=== PATIENT | male | born 2000 | race Caucasian/White ===

== ENCOUNTER 2023-08-14 12:58 | Outpatient (OUT) | payer OTHER, SELFPAY ==
--- NOTE | 2023-08-14 | XR_ITS ---
The [address] [address] Patient Name: SHAINA CAMPA MRN: [id number] date: 2000 Sex: M Assigned Patient Location: Current Patient Location: Accession/Order Number: [id number] Exam Date: 08/14/2023 13:00 Report Date: 08/15/2023 11:53 At the request of: AYDEE TATUM Procedure: XR knee LT 4V PROCEDURE: XR knee LT 4V HISTORY: KNEE PAIN ; injured left knee weightlifting 2 months ago COMPARISON: None. FINDINGS: BONES:No fracture, acute abnormality, or significant arthropathy. SOFT TISSUES:No visible soft tissue swelling. EFFUSION:None visible. OTHER: Negative. XR/XR knee LT 4V IMPRESSION: 1. No acute bone abnormality. 2. No significant degenerative changes. Electronically authenticated by: AYDEE DOMINGO Date: 08/15/2023 11:53
== END 2023-08-14 12:59 | disposition home or self-care (01) ==
LOC: EC 12:58
PROVIDERS: PCP Orthopaedic Surgery; Visit Provider Orthopaedic Surgery
DX: M25.562 Pain in left knee (principal)
CPT/HCPCS: 73564

== ENCOUNTER 2023-09-21 03:25 | Observation (INO) | payer OTHER, SELFPAY ==
[2023-09-21] VITALS (12 sets, daily range): BP systolic 98–128; BP diastolic 45–69; PULSE 49–81; TEMP 36.5–37.7; O2SAT 95–99; BMI 24.3; BMI 25.3
--- NOTE | 2023-09-21 03:40 | PC.NURSE ---
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 To which she replied yes however she reported to Dr Donohue that it was 6-200mg tablets as well as a generic OTC zofran An IV was started by this nurse, labs drawn, a straight stick performed for the second set of blood cultures, strep swab obtained Dr. Donohue states concern for Meningitis, between Dr. Donohue and I we decide it is in pt's best interest to do a respiratory panel to test for all ailments prior to performing a spinal tap- respiratory panel obtained Pt profusely sweating at time of assessment-given a cool wash cloth which he places on his forehead Pt was able to sit forward with assistance and take Tylenol orally At this time nurse makes pt and his mother aware of care plan and planned radiology-pt and his mother verbalize understanding and deny further needs or questions at this time
--- NOTE | 2023-09-21 03:49 | CT_ITS ---
The [address] [address] Patient Name: SHAINA CAMPA MRN: [id number] date: 2000 Sex: M Assigned Patient Location: ER Current Patient Location: [facility] Accession/Order Number: [id number] Exam Date: 09/21/2023 04:30 Report Date: 09/21/2023 05:25 At the request of: GÓMEZ RAMÍREZ Procedure: CT head/brain wo con CT OF THE BRAIN WITHOUT CONTRAST: 09/21/2023 4:30 AM EDT HISTORY: Fever and headache. TECHNIQUE: Contiguous axially collimated images were obtained through the intracranial compartment, from the vertex through the foramen magnum. Coronal and Sagittal reformatted images were prepared on a separate workstation and reviewed on the PACS for anatomic correlation. No contrast was administered. This CT exam was performed using one or more of the following dose reduction techniques: Automated exposure control, adjustment of the mA and/or kV according to patient size, or use of iterative reconstruction technique. Thin section coronal and sagittal images were reconstructed from the axial data set. All images were reviewed and interpreted. COMPARISON: None. FINDINGS: There is no intracranial hemorrhage or abnormal extra-axial fluid collection. To the extent of evaluated with noncontrast technique, there is no mass lesion appreciated. There is no mass-effect or shift of midline structures. The ventricles and CSF spaces are age appropriate. There is no evidence of hydrocephalus. There is no effacement of the basal cisterns. Amezcua white matter differentiation is well preserved throughout, without evidence of acute ischemia. There is no significant leukomalacia. The basal ganglia and thalami are unremarkable. The posterior fossa, brain stem, and fourth ventricle are normal. There is no tonsillar ectopy. The calvarium is intact, without destructive lesion or depressed fracture. The mastoid air cells are well-aerated. The paranasal sinuses are normally aerated. CT/CT head/brain wo con IMPRESSION: No acute or significant intracranial pathology. Electronically authenticated by: JASMIN VALVERDE Date: 09/21/2023 05:25
--- NOTE | 2023-09-21 03:49 | XR_ITS ---
[address] [address] Patient Name: SHAINA CAMPA MRN: [id number] date: 2000 Sex: M Assigned Patient Location: ER Current Patient Location: ED.MAIN Accession/Order Number: [id number] Exam Date: 09/21/2023 04:20 Report Date: 09/21/2023 05:25 At the request of: GÓMEZ MARKER Procedure: XR chest 2V EXAM: XR chest 2V HISTORY: Headache. fever COMPARISON: None. TECHNIQUE: PA and lateral chest. FINDINGS: Both lungs are expanded and clear. No pneumothorax or pleural effusion. Normal heart size and vasculature. Skeletal structures are intact and normal. No fractures. XR/XR chest 2V IMPRESSION: Negative two-view chest. Clear lungs. Electronically authenticated by: JASMIN VALVERDE Date: 09/21/2023 05:25
[2023-09-21] MEDS: ACETAMINOPHEN 325 MG TABLET 650 MG PO (03:50)
[2023-09-21] MEDS: ONDANSETRON PF 4 MG/2 ML VIAL IV ×2 (03:50→06:35)
[2023-09-21] MEDS: 0.9 % SODIUM CHLORIDE 1,000 ML 1000 ML IV ×2 (03:50→06:35)
--- NOTE | 2023-09-21 03:51 | ED.GENADUL1 ---
HPI HPI - General Adult General Chief complaint: Neck Pain/Injury Stated complaint: neck pain vomiting Time Seen by Provider: 09/21/23 03:32 Source: patient Mode of arrival: Wheelchair Limitations: no limitations History of Present Illness HPI narrative: This 23-year-old male with a history of high functioning autism according to his mother is brought to the emergency department by his mother for evaluation of fevers, chills, generalized headache with neck pain and stiffness. He also has some nausea. The symptoms have been present for the past 4 days. The patient has been swimming in the family pool but not in the deras or any ward or streams. He does not have any skin rash. He is nauseated but has not vomited. He has not had any diarrhea. His mother states she gave him Emetrol and 1200 mg of ibuprofen around 2:45 before coming to the emergency department. Despite being sick for the past 4 days the patient has still been going running although he admits that this causes his headache and neck pain to be somewhat worse. Related Data Home Medications ?Medication ?Instructions ?Recorded ?Confirmed No Known Home Medications 09/21/23 09/21/23 Allergies Allergy/AdvReac Type Severity Reaction Status Date / Time No Known Drug Allergies Allergy Verified 09/21/23 03:32 Opioid HPI Opioid Management Most Recent Opioid Data: No Data to Display Review of Systems ROS Status of ROS 10 or more systems reviewed and unremarkable except as noted in history and below Exam Narrative Exam Narrative: Vital signs and Nursing Notes reviewed: Patient is febrile with a normal pulse, normal blood pressure, he is not hypoxic with pulse ox of 98% on room air General: Nontoxic but ill and uncomfortable appearing male, no respiratory distress HEENT: Normocephalic atraumatic, mucous membranes are slightly dry, eyes are clear, normal conjunctiva, vision is grossly intact, posterior pharynx is normal in appearance. No photophobia appreciated Neck: Tenderness in the posterior cervical musculature with pain with neck flexion to the chest and questionable positive Brudzinski sign Chest: Lungs are clear to auscultation with good air entry, there is no wheezing rhonchi or rales appreciated no accessory muscle use, patient is speaking in complete sentences-no chest wall tenderness to palpation CVS: Regular rate and rhythm S1-S2, no murmurs rubs or gallops, pulses are brisk and equal bilaterally ABD: Soft, flat, nondistended, mild tenderness in the right lower quadrant without guarding or rigidity Extremities: Moving all extremities, no lower extremity tenderness or swelling noted, negative Homans' sign, pulses are brisk and equal bilaterally Skin: Normal in appearance without rash,pallor, petechiae or purpura Neuro: No focal deficits Constitutional Vital Signs, click to edit/add: Last Vital Signs Temp 99.4 F 09/21/23 03:27 Pulse 49 L 09/21/23 06:50 Resp 21 H 09/21/23 06:50 BP 105/54 09/21/23 06:24 Pulse Ox 96 09/21/23 06:50 O2 Del Method Room Air 09/21/23 03:27 Course Vital Signs Vital signs: Vital Signs Temperature 99.4 F 09/21/23 03:27 Pulse Rate 81 09/21/23 03:27 Respiratory Rate 16 09/21/23 03:27 Blood Pressure 128/68 09/21/23 03:27 Pulse Oximetry 98 09/21/23 03:27 Oxygen Delivery Method Room Air 09/21/23 03:27 Temperature 99.4 F 09/21/23 03:27 Pulse Rate 49 L 09/21/23 06:50 Respiratory Rate 21 H 09/21/23 06:50 Blood Pressure 105/54 09/21/23 06:24 Pulse Oximetry 96 09/21/23 06:50 Oxygen Delivery Method Room Air 09/21/23 03:27 Medical Decision Making MDM Narrative Medical decision making narrative: Procedure note: Lumbar puncture; verbal and written consent was obtained by the patient and witnessed by the mother. The patient was positioned in the sitting position, his lumbar spine was cleaned with Betadine and infiltrated with 1% lidocaine. When anesthesia was obtained the spinal needle was passed into the epidural space. A total of 3 attempts was performed before the CSF was obtained. 4 tubes of clear CSF was obtained and sent to the lab. Patient tolerated procedure well. He was returned to a supine position and medicated with additional IV fluids, 4 of morphine and 4 of Zofran. MDM: This 23-year-old male is brought to emergency department by his mother for evaluation of 4 days of generalized illness with fever, nausea, headache and neck pain and stiffness. 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 He has had no recent travel. Upon arrival he was fairly ill-appearing. His posterior pharynx was mildly erythematous with no exudate. His lungs were clear, abdomen was soft with mild tenderness in the right lower quadrant. He did have nuchal rigidity with inability to flex his chin to his chest. He also had mild photophobia. He was given 1200 mg of ibuprofen earlier in the evening by his mother who was under the impression that you should give all of the medication at once that you need to take for 24 hours. He had not been medicated with Tylenol. In the ER he was given Tylenol, Zofran and IV fluids. Routine labs are reviewed. He has a decreased white count at 3.9. Hemoglobin is stable at 16.4 but platelet count is mildly decreased at 110. There is a monocytic shift on his differential and lymphopenia. Electrolytes are normal. Strep, mono and a respiratory panel were ordered and all were negative. 2 sets of blood cultures are pending at this time. Lactic acid was normal. The patient was sent for a chest x-ray, CT scan of the brain and CT scan of the abdomen pelvis due to the tenderness in his right lower quadrant. The chest x-ray CT scan of the brain and CT scan of the abdomen pelvis were read by radiology as normal. At this point I explained to the patient and his mother that I was concerned about meningitis as I do not have an additional source for his fever, headache or neck pain and he consented to a lumbar puncture. The lumbar puncture was performed with the mother at the bedside. 4 sets of clear CSF were obtained and sent to the lab. He was empirically medicated with 2 g of IV Rocephin and IV vancomycin as well as an additional liter of normal saline, Zofran and morphine for his headache and pain. The case was discussed with the hospitalist and the patient accepted for admission. Patient and mother are in agreement with this plan. Medical Records Medical records narrative: [facility] [place] [id number] CT Scan Report Signed Patient: SHAINA CAMPA MR#: [id number] : 2000 Acct:[id number] Age/Sex: 23 / M ADM Date: 09/21/23 Loc: ER Attending Dr: Ordering Physician: Joyce Donohue Date of Service: 09/21/23 Procedure(s): CT abdomen pelvis w con Accession Number(s): [id number] cc: Physician,Non-Staff Kristen~ [facility] [place] [id number] Patient Name: SHAINA CAMPA MRN: [id number] date: 2000 Sex: M Assigned Patient Location: ER Current Patient Location: ER Accession/Order Number: [id number] Exam Date: 09/21/2023 04:40 Report Date: 09/21/2023 05:27 At the request of: JOYCE MARKER Procedure: CT abdomen pelvis w con CT OF THE ABDOMEN AND PELVIS WITH CONTRAST: 09/21/2023 4:40 AM EDT CLINICAL HISTORY: Right lower quadrant pain and fever. 23-year-old male. COMPARISONS: None. TECHNIQUE: Thin section axial CT images were obtained from the lung bases to the pubis symphysis. This CT exam was performed using one or more of the following dose reduction techniques: Automated exposure control, adjustment of the mA and/or kV according to patient size, or use of iterative reconstruction technique. Thin section coronal and sagittal images were reconstructed from the axial data set. All images were reviewed and interpreted. CONTRAST: Intravenous contrast was administered. Type and amount is documented at the local institution. FINDINGS: LUNG BASES: No consolidation or pleural fluid. LIVER: Borderline mild enlargement. No hepatic mass or cyst. GALLBLADDER: Normal. BILIARY TREE: No ductal dilatation. PANCREAS: Normal. SPLEEN: Splenomegaly. Splenic length 14.6 cm. No splenic mass or cyst. ADRENALS: Normal. KIDNEYS: Normal, without urolithiasis or hydronephrosis. URINARY BLADDER: Grossly unremarkable. PELVIC STRUCTURES: Unremarkable. BOWEL: No evidence of obstruction, gross mass, or inflammatory change. There is no significant diverticulosis. There is no evidence of diverticulitis. Mild diffuse colonic stool burden. APPENDIX: No active disease with normal appendix. LYMPH NODES: No pathologically enlarged lymph nodes identified. PERITONEUM: No intraperitoneal free air. No free intraperitoneal fluid. MESENTERY: Unremarkable. RETROPERITONEUM: The retroperitoneum is unremarkable. AORTA: Normal in caliber. BODY WALL: No body wall mass. OSSEOUS STRUCTURES: No destructive osseous lesion or displaced fracture. CT/CT abdomen pelvis w con IMPRESSION: 1. Splenomegaly with borderline hepatomegaly. Correlate with labs. 2. Nonspecific colonic stool burden. Correlate for constipation. 3. No acute findings or inflammatory process. Electronically authenticated by: JASMIN VALVERDE Date: 09/21/2023 05:2 [place] [address] XRay Report Signed Patient: SHAINA CAMPA MR#: [id number] : 2000 Acct:[id number] Age/Sex: 23 / M ADM Date: 09/21/23 Loc: ER Attending Dr: Ordering Physician: Joyce Donohue Date of Service: 09/21/23 Procedure(s): XR chest 2V Accession Number(s): [id number] cc: Joyce Marker; Physician,Non-Staff M.D.~ [facility] [place] [address] Patient Name: SHAINA CAMPA MRN: [facility]:[id number] date: 2000 Sex: M Assigned Patient Location: ER Current Patient Location: ED.MAIN Accession/Order Number: [id number] Exam Date: 09/21/2023 04:20 Report Date: 09/21/2023 05:25 At the request of: JOYCE MARKER Procedure: XR chest 2V EXAM: XR chest 2V HISTORY: Headache. fever COMPARISON: None. TECHNIQUE: PA and lateral chest. FINDINGS: Both lungs are expanded and clear. No pneumothorax or pleural effusion. Normal heart size and vasculature. Skeletal structures are intact and normal. No fractures. XR/XR chest 2V IMPRESSION: Negative two-view chest[place] [address] CT Scan Report Signed Patient: SHAINA CAMPA MR#: [id number] : 2000 Acct:[id number] Age/Sex: 23 / M ADM Date: 09/21/23 Loc: ER Attending Dr: Ordering Physician: Joyce Donohue Date of Service: 09/21/23 Procedure(s): CT head/brain wo con Accession Number(s): [id number] cc: Physician,Non-Staff M.D.~ [facility] [place] [address] Patient Name: SHAINA CAMPA MRN: [facility]:[id number] date: 2000 Sex: M Assigned Patient Location: ER Current Patient Location: ED.MAIN Accession/Order Number: [id number] Exam Date: 09/21/2023 04:30 Report Date: 09/21/2023 05:25 At the request of: JOYCE DONOHUE Procedure: CT head/brain wo con CT OF THE BRAIN WITHOUT CONTRAST: 09/21/2023 4:30 AM EDT HISTORY: Fever and headache. TECHNIQUE: Contiguous axially collimated images were obtained through the intracranial compartment, from the vertex through the foramen magnum. Coronal and Sagittal reformatted images were prepared on a separate workstation and reviewed on the PACS for anatomic correlation. No contrast was administered. This CT exam was performed using one or more of the following dose reduction techniques: Automated exposure control, adjustment of the mA and/or kV according to patient size, or use of iterative reconstruction technique. Thin section coronal and sagittal images were reconstructed from the axial data set. All images were reviewed and interpreted. COMPARISON: None. FINDINGS: There is no intracranial hemorrhage or abnormal extra-axial fluid collection. To the extent of evaluated with noncontrast technique, there is no mass lesion appreciated. There is no mass-effect or shift of midline structures. The ventricles and CSF spaces are age appropriate. There is no evidence of hydrocephalus. There is no effacement of the basal cisterns. Amezcua white matter differentiation is well preserved throughout, without evidence of acute ischemia. There is no significant leukomalacia. The basal ganglia and thalami are unremarkable. The posterior fossa, brain stem, and fourth ventricle are normal. There is no tonsillar ectopy. The calvarium is intact, without destructive lesion or depressed fracture. The mastoid air cells are well-aerated. The paranasal sinuses are normally aerated. CT/CT head/brain wo con IMPRESSION: No acute or significant intracranial pathology. Electronically authenticated by: JASMIN VALVERDE Date: 09/21/2023 05:25 Lab Data Lab results reviewed: Yes I reviewed the patient's lab results Labs: Lab Results 09/21/23 09/21/23 Range/Units 04:10 04:12 WBC 3.9 L (4.0-11.0) 10^3/uL RBC 4.99 (4.70-6.10) 10^6/uL Hgb 16.4 (14.0-18.0) g/dL Hct 46.4 (42.0-54.0) % MCV 93.0 (80.0-94.0) fL MCH 32.9 (25.9-34.0) pg MCHC 35.3 H (29.9-35.2) g/dL RDW 11.7 (11.0-15.0) % Plt Count 110 L (150-450) 10^3/uL MPV 8.5 L (9.5-13.5) fL Neut % (Auto) 61.3 (43.0-75.0) % Lymph % (Auto) 20.2 L (20.5-60.0) % [place] % (Auto) 16.4 H (1.7-12.0) % Eos % (Auto) 1.3 (0.9-7.0) % Baso % (Auto) 0.5 (0.2-2.0) % Neut # (Auto) 2.4 (1.4-6.5) 10^3/uL Lymph # (Auto) 0.8 L (1.2-3.8) 10^3/uL [place] # (Auto) 0.6 (0.3-0.8) 10^3/uL Eos # (Auto) 0.1 (0.0-0.7) 10^3/uL Baso # (Auto) 0.0 (0.0-0.1) 10^3/uL Abs Immat Gran (auto) 0.01 (0.00-0.03) 10^3/uL Imm/Tot Granulo (auto) 0.3 (0.0-0.5) % Sodium 135 L (136-145) mmol/L Potassium 3.4 L (3.5-5.1) mmol/L Chloride 106 (98-107) mmol/L Carbon Dioxide 26.8 (21.0-32.0) mmol/L Anion Gap 5.6 BUN 25.0 H (7.0-18.0) mg/dL Creatinine 1.06 (0.70-1.30) mg/dL Est GFR ( Amer) >60 (>=60) Est GFR (Non-Af Amer) >60 (>=60) BUN/Creatinine Ratio 23.6 Glucose 100 (74-106) mg/dL Lactate 1.0 (0.4-2.0) mmol/L Calcium 8.7 (8.5-10.1) mg/dL Total Bilirubin 1.1 H (0.2-1.0) mg/dL AST 20 (15-37) U/L ALT 37 (16-63) U/L Alkaline Phosphatase 100 (46-116) U/L Total Protein 6.5 (6.4-8.2) g/dL Albumin 3.8 (3.4-5.0) g/dL Globulin 2.7 g/dL Albumin/Globulin Ratio 1.4 Adenovirus (PCR) Not detected (NOT DETECTE) B. pertussis DNA (PCR) Not detected (NOT DETECTE) B.parapertussis DNA PCR Not detected (NOT DETECTE) C. pneumoniae DNA (PCR) Not detected (NOT DETECTE) Coronavirus Type OC43 Not detected (NOT DETECTE) Coronavirus Type HKU1 Not detected (NOT DETECTE) Coronavirus Type 229E Not detected (NOT DETECTE) Coronavirus Type NL63 Not detected (NOT DETECTE) Monoscreen Negative (NEGATIVE) Human Metapneumovir PCR Not detected (NOT DETECTE) Influenza Type A (PCR) Not detected (NOT DETECTE) Influenza Type B (PCR) Not detected (NOT DETECTE) M. pneumoniae (PCR) Not detected (NOT DETECTE) Parainfluenza PCR Not detected (NOT DETECTE) Parainfluenza 2 (PCR) Not detected (NOT DETECTE) Parainfluenza 3 (PCR) Not detected (NOT DETECTE) Parainfluenza 4 (PCR) Not detected (NOT DETECTE) RSV (RT-PCR) Not detected (NOT DETECTE) Entero/Rhino (PCR) Not detected (NOT DETECTE) SARS-CoV-2 (PCR) Not detected (NOT DETECTE) Streptococcus Screen Negative Critical Care Time Critical Care Time Critical Care Time: Yes Total Critical Care Time: 40 Attestation: . Discharge Plan Discharge Chief Complaint: Neck Pain/Injury Clinical Impression: Fever and neutropenia, Headache, Headache associated with infection Patient Disposition: Admitted as Observation Time of Disposition Decision: 06:55 Condition: Fair Prescriptions / Home Meds: No Action No Known Home Medications Print Language: Kyrgyz Referrals: Physician,Non-Staff, MD [Primary Care Provider] - 1 week
--- NOTE | 2023-09-21 04:00 | CT_ITS ---
[address] [address] Patient Name: SHAINA CAMPA MRN: [id number] date: 2000 Sex: M Assigned Patient Location: ER Current Patient Location: Accession/Order Number: [id number] Exam Date: 09/21/2023 04:40 Report Date: 09/21/2023 05:27 At the request of: GÓMEZ MARKER Procedure: CT abdomen pelvis w con CT OF THE ABDOMEN AND PELVIS WITH CONTRAST: 09/21/2023 4:40 AM EDT CLINICAL HISTORY: Right lower quadrant pain and fever. 23-year-old male. COMPARISONS: None. TECHNIQUE: Thin section axial CT images were obtained from the lung bases to the pubis symphysis. This CT exam was performed using one or more of the following dose reduction techniques: Automated exposure control, adjustment of the mA and/or kV according to patient size, or use of iterative reconstruction technique. Thin section coronal and sagittal images were reconstructed from the axial data set. All images were reviewed and interpreted. CONTRAST: Intravenous contrast was administered. Type and amount is documented at the local institution. FINDINGS: LUNG BASES: No consolidation or pleural fluid. LIVER: Borderline mild enlargement. No hepatic mass or cyst. GALLBLADDER: Normal. BILIARY TREE: No ductal dilatation. PANCREAS: Normal. SPLEEN: Splenomegaly. Splenic length 14.6 cm. No splenic mass or cyst. ADRENALS: Normal. KIDNEYS: Normal, without urolithiasis or hydronephrosis. URINARY BLADDER: Grossly unremarkable. PELVIC STRUCTURES: Unremarkable. BOWEL: No evidence of obstruction, gross mass, or inflammatory change. There is no significant diverticulosis. There is no evidence of diverticulitis. Mild diffuse colonic stool burden. APPENDIX: No active disease with normal appendix. LYMPH NODES: No pathologically enlarged lymph nodes identified. PERITONEUM: No intraperitoneal free air. No free intraperitoneal fluid. MESENTERY: Unremarkable. RETROPERITONEUM: The retroperitoneum is unremarkable. AORTA: Normal in caliber. BODY WALL: No body wall mass. OSSEOUS STRUCTURES: No destructive osseous lesion or displaced fracture. CT/CT abdomen pelvis w con IMPRESSION: 1. Splenomegaly with borderline hepatomegaly. Correlate with labs. 2. Nonspecific colonic stool burden. Correlate for constipation. 3. No acute findings or inflammatory process. Electronically authenticated by: JASMIN VALVERDE Date: 09/21/2023 05:27
[2023-09-21 04:31] LABS: Adenovirus NOT DETECTED (NOT DETECTE); Bordetella parapertussis NOT DETECTED (NOT DETECTE); Coronavirus 229E NOT DETECTED (NOT DETECTE); Coronavirus HKU1 NOT DETECTED (NOT DETECTE); Coronavirus NL63 NOT DETECTED (NOT DETECTE); Coronavirus OC43 NOT DETECTED (NOT DETECTE); Human Metapneumovirus NOT DETECTED (NOT DETECTE); Human Rhinovirus/Enterovirus NOT DETECTED (NOT DETECTE); Influenza A NOT DETECTED (NOT DETECTE); Influenza B NOT DETECTED (NOT DETECTE); Mycoplasma pneumoniae NOT DETECTED (NOT DETECTE); Parainfluenza Virus 1 NOT DETECTED (NOT DETECTE); Parainfluenza Virus 2 NOT DETECTED (NOT DETECTE); Parainfluenza Virus 3 NOT DETECTED (NOT DETECTE); Parainfluenza Virus 4 NOT DETECTED (NOT DETECTE); Respiratory Syncytial Virus NOT DETECTED (NOT DETECTE); SARS-CoV-2 NOT DETECTED (NOT DETECTE)
[2023-09-21 04:32] LABS: Basophils Percent Auto 0.5 % (0.2-2.0); Eosinophils Absolute Auto 0.1 10^3/uL (0.0-0.7); Eosinophils Percent Auto 1.3 % (0.9-7.0); Hematocrit 46.4 % (42.0-54.0); Hemoglobin 16.4 g/dL (14.0-18.0); Immature Granulocytes Abs Auto 0.01 10^3/uL (0.00-0.03); Immature Granulocytes Pct Auto 0.3 % (0.0-0.5); Lymphocytes Absolute Auto 0.8 10^3/uL (1.2-3.8); Lymphocytes Percent Auto 20.2 % (20.5-60.0); Mean Corpuscular HGB Conc 35.3 g/dL (29.9-35.2); Mean Corpuscular Hemoglobin 32.9 pg (25.9-34.0); Mean Platelet Volume 8.5 fL (9.5-13.5); Monocytes Absolute Auto 0.6 10^3/uL (0.3-0.8); Monocytes Percent Auto 16.4 % (1.7-12.0); Neutrophils Absolute Auto 2.4 10^3/uL (1.4-6.5); Neutrophils Percent Auto 61.3 % (43.0-75.0); Platelet Count 110 10^3/uL (150-450); Red Blood Count 4.99 10^6/uL (4.70-6.10); Red Cell Distribution Width 11.7 % (11.0-15.0); White Blood Count 3.9 10^3/uL (4.0-11.0)
[2023-09-21 04:43] LABS: Internal Control Within Normal Limits; Strep A Antigen Screen Negative
[2023-09-21 04:46] LABS: Internal Control Within Normal Limits; Mono Screen NEGATIVE (NEGATIVE)
[2023-09-21 05:01] LABS: Alanine Aminotransferase 37 U/L (16-63); Albumin Globulin Ratio 1.4; Albumin Level 3.8 g/dL (3.4-5.0); Alkaline Phosphatase 100 U/L (46-116); Anion Gap 5.6; Aspartate Amino Transferase 20 U/L (15-37); BUN Creatinine Ratio 23.6; Bilirubin Total 1.1 mg/dL (0.2-1.0); Calcium 8.7 mg/dL (8.5-10.1); Carbon Dioxide 26.8 mmol/L (21.0-32.0); Chloride 106 mmol/L (98-107); Estimated GFR (African America >60 (>=60); Estimated GFR (Non-African Ame >60 (>=60); Globulin 2.7 g/dL; Glucose 100 mg/dL (74-106); Potassium 3.4 mmol/L (3.5-5.1); Sodium 135 mmol/L (136-145); Total Protein 6.5 g/dL (6.4-8.2)
[2023-09-21] MEDS: FAMOTIDINE/PF 20 MG/2 ML VIAL IV (06:34)
[2023-09-21] MEDS: LIDOCAINE HCL 1% 100 MG/10 ML MDV INJ (06:34)
[2023-09-21] MEDS: CEFTRIAXONE 2,000 MG in 0.9 % SODIUM CHLORIDE 100 ML 200 MG IV (06:35)
[2023-09-21] MEDS: MORPHINE SULFATE 4 MG/ML VIAL IV (06:35)
[2023-09-21 06:54] LABS: Glucose CSF 63 mg/dL (40-70); Total Protein CSF 42 mg/dL (15-45)
[2023-09-21 07:50] LABS: CSF Clarity CLEAR (CLEAR); CSF Color COLORLESS (COLORLESS); CSF Tube # 3
[2023-09-21 07:51] LABS: CSF Total Volume 2 mL; Red Blood Cell CSF 0 cubic mm; Red Blood Cell CSF Side 1 0; Red Blood Cell CSF Side 2 1; White Blood Cell CSF 7 cubic mm; White Blood Cell CSF Side 1 6; White Blood Cell CSF Side 2 8
[2023-09-21] MEDS: VANCOMYCIN HCL 1,500 MG in 0.9 % SODIUM CHLORIDE 500 ML 250 MG IV (09:43)
--- NOTE | 2023-09-21 10:51 | PM.HP ---
HPI H&P: HPI History of Present Illness Chief complaint: NECK PAIN, FEVER, HEADACHE, MENINGITIS WORK UP Narrative: 23 y/o male to ER with neck pain. Not feeling well for several days. Severe fatigue and mild SOB. Minimal cough. Developed GUERRERO and neck stiffness. Very difficult to turn head side to side. No rashes. Developed nausea but no emesis. Developed fever and to ER. Temp 99.4 on arrival but took ibuprofen prior. WBC 3.9. Respiratory panel and strep negative. LP performed and clear. CT performed due to abdominal pain and showed splenomegaly. Given rocephin and admitted for monitoring. Opioid HPI Opioid Management Most Recent Pain and Opioid Data: Last Pain Scale 3 09/21/23 08:34 Last Pain Assessment 09/21/23 10:10 Last ORT Total Score 1 09/21/23 08:10 Last ORT Risk Category Low Risk 09/21/23 08:10 Review of Systems ROS Constitutional Reports: fever, chills and fatigue Cardiovascular Denies: chest pain, palpitations or edema Respiratory Reports: shortness of breath; Denies: cough or wheezing Gastrointestinal Reports: nausea; Denies: abdominal pain, vomiting or diarrhea Genitourinary Denies: painful urination PFSH PFSH Medical History (Updated 09/21/23 @ 08:39 by Marcos Pierce MD) Headache ?R51.9 - Headache, unspecified (ICD-10) Surgical History (Updated 09/21/23 @ 08:38 by Fely Estrada) Hx of tonsillectomy ?Z90.89 - Acquired absence of other organs (ICD-10) Family History (Updated 09/21/23 @ 08:38 by Fely Estrada) Father Family history of COPD (chronic obstructive pulmonary disease) Social History (Updated 09/21/23 @ 08:39 by Fely Estrada) Within the past year, how often did you have a drink containing alcohol: never Within the past year, how often did you have six or more drinks on one occasion: never Score interpretation: A score less than 4 is consistent with normal alcohol consumption. Smoking status: Never smoker Non-prescribed substance use: denies use Previous occupational history: [employer] Highest level of school completed/degree received: some college, no degree Are you now , , , , never or living with a partner: never In a typical week, how many times do you talk on the telephone with family, friends, or neighbors: 3 or more times per week How often do you get together with friends or relatives: 3 or more times per week How often do you attend sabianist or latter-day services: 4 or more times per year Do you belong to any clubs or organizations such as sabianist groups unions, fraternal or athletic groups, or school groups: no Total score: 2 Score interpretation: A score of greater than or equal to 2 indicates the lowest level of social isolation. Little interest or pleasure in doing things: not at all Feeling down, depressed, or hopeless: not at all Feel stressed/tense/nervous/anxious/difficulty sleeping: not at all Due to disability, difficulty making decisions: No Do you think of yourself as: straight/heterosexual Gender Identity: male Meds Home Medications and Allergies Home Medications ?Medication ?Instructions ?Recorded ?Confirmed ?Type No Known Home Medications 09/21/23 09/21/23 History Allergies Allergy/AdvReac Type Severity Reaction Status Date / Time No Known Drug Allergies Allergy Verified 09/21/23 03:32 Exam Constitutional Vital Signs, click to edit/add: Last Vital Signs Temp 98.0 F 09/21/23 08:10 Pulse 54 L 09/21/23 08:10 Resp 16 09/21/23 08:10 BP 101/62 09/21/23 08:10 Pulse Ox 95 09/21/23 08:10 O2 Del Method Room Air 09/21/23 08:10 Documenting provider has reviewed patient's vital signs: yes Common normals: no apparent distress, oriented x3 and alert HENMT Common normals: normocephalic Eye Common normals: PERRL and EOMs intact bilaterally Respiratory Common normals: normal respiratory effort and clear to auscultation bilaterally Cardio Common normals: regular rate, regular rhythm, no gallops, no murmurs and no rub GI Common normals: Normal to inspection, nondistended, normoactive bowel sounds present and non-tender Extremity Common normals: no pedal edema Results Labs Labs: Short CBC 09/21/23 Range/Units 04:10 WBC 3.9 L (4.0-11.0) 10^3/uL Hgb 16.4 (14.0-18.0) g/dL Hct 46.4 (42.0-54.0) % Plt Count 110 L (150-450) 10^3/uL BMP 09/21/23 04:10 Sodium 135 L Potassium 3.4 L Chloride 106 Carbon Dioxide 26.8 BUN 25.0 H Creatinine 1.06 Glucose 100 Calcium 8.7 Liver Function 09/21/23 Range/Units 04:10 Total Bilirubin 1.1 H (0.2-1.0) mg/dL AST 20 (15-37) U/L ALT 37 (16-63) U/L Alkaline Phosphatase 100 (46-116) U/L Albumin 3.8 (3.4-5.0) g/dL Assessment and Plan Assessment and Plan (1) Viral illness: (2) Headache associated with infection: (3) Nuchal rigidity: (4) Splenomegaly: (5) Fever and neutropenia: (6) Autism spectrum disorder: Plan LP showed normal protein and glucose and no WBC. Gram stain negative for organisms or WBC. Meningitis ruled out. WBC low and likely viral illness. CT with splenomegaly and possible mono although monospot negative. Check EBV titers. Continue rocephin. Give tylenol PRN and monitor. CSF cultures sent. If continues to do well likely home in am.
--- NOTE | 2023-09-21 11:05 | CM.NOTE ---
09:[address] Pierce. Dr. Pierce discussed lumbar puncture gram stain results, enlarged spleen, possible reasons for GUERRERO, fever. Williams verbalized understanding. No plan for discharge today.
[2023-09-21] MEDS: ACETAMINOPHEN 500 MG TABLET 1000 MG PO (18:34)
[2023-09-21 21:53] LABS: Bilirubin Urine NEGATIVE (NEGATIVE); Blood Urine LARGE (NEGATIVE); Clarity Urine CLEAR (CLEAR); Color Urine YELLOW (YELLOW); Glucose Urine UA 500 mg/dL (NEGATIVE); Ketones Urine NEGATIVE (NEGATIVE); Leukocyte Esterase Urine NEGATIVE (NEGATIVE); Nitrite Urine NEGATIVE (NEGATIVE); Protein Urine 30 mg/dL (NEG/TRACE); Specific Gravity Urine 1.025 (1.005-1.025); Urobilinogen Urine 0.2 EU/dL (0.2-1.0)
[2023-09-21 22:02] LABS: Amorphous Sediment Urine FEW; Bacteria Urine NONE SEEN #/HPF (NONE SEEN); Cast Seen? NONE SEEN #/LPF (NONE SEEN); Crystals Seen? None Seen #/HPF (None Seen); Mucus Urine NONE SEEN (NONE SEEN); Squamous Epithelial Cell Urine NONE SEEN #/LPF (NONE/RARE); Urine Culture Indicated NO
[2023-09-22] MEDS: CEFTRIAXONE 1,000 MG in 0.9 % SODIUM CHLORIDE 50 ML 100 MG IV (05:48)
[2023-09-22] MEDS: 0.9 % SODIUM CHLORIDE 250 ML 10 ML IV (05:48)
[2023-09-22 06:00] VITALS: BP 111/67; PULSE 83; TEMP 38; O2SAT 96
[2023-09-22 06:19] LABS: Hematocrit 44.9 % (42.0-54.0); Hemoglobin 15.7 g/dL (14.0-18.0); Mean Corpuscular Hemoglobin 32.5 pg (25.9-34.0); Mean Platelet Volume 9.2 fL (9.5-13.5); Platelet Count 105 10^3/uL (150-450); Red Blood Count 4.83 10^6/uL (4.70-6.10); Red Cell Distribution Width 11.8 % (11.0-15.0); White Blood Count 4.4 10^3/uL (4.0-11.0)
[2023-09-22] MEDS: ACETAMINOPHEN 500 MG TABLET 1000 MG PO (06:27)
[2023-09-22 07:30] LABS: Basophils Abs Manual 0.08 10^3/uL (0.00-0.10); Lymphocytes Absolute Manual 1.32 10^3/uL (1.20-3.80); Monocytes Absolute Manual 0.52 10^3/uL (0.30-0.80); Segmented Neut Absolute Manual 2.42 10^3/uL (1.4-6.5)
[2023-09-22 08:20] VITALS: TEMP 36.6
--- NOTE | 2023-09-22 11:00 | PM.DS1 ---
DS: Providers Provider Date of admission: 09/21/23 07:28 Primary care physician: Non-Staff Physician, DS: Diagnosis Discharge Diagnosis (1) Viral illness: (2) Headache associated with infection: (3) Nuchal rigidity: (4) Splenomegaly: (5) Fever and neutropenia: (6) Autism spectrum disorder: DS: Summary Hospital Course Hospital Course: Reason for admission: See H&P for details. 23 y/o male to ER with neck pain. Not feeling well for several days. Severe fatigue and mild SOB. Minimal cough. Developed GUERRERO and neck stiffness. Very difficult to turn head side to side. No rashes. Developed nausea but no emesis. Developed fever and to ER. Temp 99.4 on arrival but took ibuprofen prior. WBC 3.9. Respiratory panel and strep negative. LP performed and clear. CT performed due to abdominal pain and showed splenomegaly. Given rocephin and admitted for monitoring. Hospital course: Continued rocephin and gave tylenol for fever. LP ruled out meningitis. Gram stain negative, no WBC in fluid and normal protein and glucose. CT with splenomegaly but mono negative. Patient stable in hospital. Still fever but responded to tylenol. Mild neck stiffness. CSF culture pending. Discharged home in stable condition. Will take cefdinir x 10 days. Increase fluids. Follow up with PCP in 2-4 weeks. Time Spent with Patient Time attestation: Total time spent providing and/or coordinating discharge services: Time spent: greater than 30 minutes Exam Constitutional Vital Signs, click to edit/add: Last Vital Signs Temp 97.9 F 09/22/23 08:20 Pulse 83 09/22/23 06:00 Resp 18 09/22/23 08:15 BP 111/67 09/22/23 06:00 Pulse Ox 96 09/22/23 06:00 O2 Del Method Room Air 09/22/23 06:00 Documenting provider has reviewed patient's vital signs: yes Common normals: no apparent distress, oriented x3 and alert HENMT Common normals: normocephalic Eye Common normals: PERRL and EOMs intact bilaterally Respiratory Common normals: normal respiratory effort and clear to auscultation bilaterally Cardio Common normals: regular rate, regular rhythm, no gallops, no murmurs and no rub GI Common normals: Normal to inspection, nondistended, normoactive bowel sounds present and non-tender Extremity Common normals: no pedal edema DS: Data Data Completed and Pending Labs on day of discharge: Labs from last 24 hours 09/22/23 09/21/23 05:07 21:20 WBC 4.4 RBC 4.83 Hgb 15.7 Hct 44.9 MCV 93.0 MCH 32.5 MCHC 35.0 RDW 11.8 Plt Count 105 L MPV 9.2 L Seg Neuts % (Manual) 55.0 Band Neutrophils % 1.0 Lymphocytes % (Manual) 30.0 Monocytes % (Manual) 12.0 Eosinophils % (Manual) 0.0 L Basophils % (Manual) 2.0 Neutrophils # (Manual) 2.42 Band Neutrophils # 0.0 Lymphocytes # (Manual) 1.32 Monocytes # (Manual) 0.52 Eosinophils # (Manual) 0.00 Basophils # (Manual) 0.08 Urine Color Yellow Urine Clarity Clear Urine pH 6.0 Ur Specific [place] 1.025 Urine Protein 30 A Urine Glucose (UA) 500 A Urine Ketones Negative Urine Occult Blood Large A Urine Nitrite Negative Urine Bilirubin Negative Urine Urobilinogen 0.2 Ur Leukocyte Esterase Negative Urine RBC 10-20 A Urine WBC 2-5 A Ur Squamous Epith Cells None seen Urine Crystals None seen Amorphous Sediment Few Urine Bacteria None seen Urine Casts None seen Urine Mucus None seen Ur Culture Indicated? No Preliminary micro results at discharge 09/21/23 04:12 Group A Streptococcus Screen (FREDERIC) - Preliminary Throat Discharge Plan Discharge Disposition: Home, Self-Care Condition: Fair Discharge Medications: New cefdinir 300 mg capsule 300 mg PO BID 10 Days Qty: 20 0RF Activity: increase activity as tolerated Diet: advance to your usual diet Print Language: [place] Forms: Portal Instructions
--- NOTE | 2023-09-22 11:17 | CM.NOTE ---
10:[address] Pierce. Dr. Pierce discussed lab & test results with Williams and plan for discharge today on po antibiotics. Williams verbalized understanding.
[2023-09-22 12:12] LABS: Alanine Aminotransferase 38 U/L (16-63); Albumin Globulin Ratio 1.2; Albumin Level 3.5 g/dL (3.4-5.0); Alkaline Phosphatase 91 U/L (46-116); Anion Gap 12.4; Aspartate Amino Transferase 21 U/L (15-37); BUN Creatinine Ratio 13.6; Calcium 8.7 mg/dL (8.5-10.1); Carbon Dioxide 28.6 mmol/L (21.0-32.0); Chloride 105 mmol/L (98-107); Estimated GFR (African America >60 (>=60); Estimated GFR (Non-African Ame >60 (>=60); Globulin 2.8 g/dL; Glucose 99 mg/dL (74-106); Sodium 142 mmol/L (136-145); Total Protein 6.3 g/dL (6.4-8.2)
--- NOTE | 2023-09-22 14:15 | NUTR.NU ---
Pt was admitted to facility w/viral infection and associated complications. He has improved; PO intakes of regular diet are good, consistently 100%, and meet pt's estimated nutrient requirements. He is discharged this date; no dietary concerns.
[2023-09-22 15:10] LABS: EBV Ab VCA, IgG <18.0 U/mL (0.0-17.9); EBV Ab VCA, IgM <36.0 U/mL (0.0-35.9); EBV Nuclear Antigen Ab, IgG <18.0 U/mL (0.0-17.9)
[2023-09-25 07:37] LABS: A. calcoaceticus-baumannii Cpx NOT DETECTED (NOT DETECTE); Bacteroides fragilis NOT DETECTED (NOT DETECTE); Candida albicans NOT DETECTED (NOT DETECTE); Candida auris NOT DETECTED (NOT DETECTE); Candida glabrata NOT DETECTED (NOT DETECTE); Candida krusei NOT DETECTED (NOT DETECTE); Candida parapsilosis NOT DETECTED (NOT DETECTE); Candida tropicalis NOT DETECTED (NOT DETECTE); Cryptococcus neoformans/gattii NOT DETECTED (NOT DETECTE); Enterobacter cloacae complex NOT DETECTED (NOT DETECTE); Enterobacterales NOT DETECTED (NOT DETECTE); Enterococcus faecalis NOT DETECTED (NOT DETECTE); Enterococcus faecium NOT DETECTED (NOT DETECTE); Haemophilus influenzae NOT DETECTED (NOT DETECTE); Klebsiella aerogenes NOT DETECTED (NOT DETECTE); Klebsiella pneumoniae group NOT DETECTED (NOT DETECTE); Listeria monocytogenes NOT DETECTED (NOT DETECTE); Neisseria meningitidis NOT DETECTED (NOT DETECTE); Proteus spp. NOT DETECTED (NOT DETECTE); Pseudomonas aeruginosa NOT DETECTED (NOT DETECTE); Salmonella spp. NOT DETECTED (NOT DETECTE); Serratia marcescens NOT DETECTED (NOT DETECTE); Staphylococcus epidermidis NOT DETECTED (NOT DETECTE); Staphylococcus lugdunensis NOT DETECTED (NOT DETECTE); Staphylococcus spp. NOT DETECTED (NOT DETECTE); Stenotrophomonas maltophilia NOT DETECTED (NOT DETECTE); Streptococcus agalactiae NOT DETECTED (NOT DETECTE); Streptococcus pneumoniae NOT DETECTED (NOT DETECTE); Streptococcus pyogenes NOT DETECTED (NOT DETECTE); Streptococcus spp. NOT DETECTED (NOT DETECTE)
--- NOTE | 2023-09-25 12:31 | CM.DCFOLLOWU ---
Person spoke with: patient's mother How are you feeling? he is doing alright, came back to ED on 09/22, was released but got some medications and a steroid How is your pain? better Did you understand your discharge instructions? yes Do you have any questions about your discharge instructions? no Were you given any prescriptions at discharge? yes Were you able to get your prescriptions filled? yes Do you understand how to take your medications as ordered? yes Do you have any questions about your follow up appointment and do you plan to keep your follow up appointment? no questions, has follow up with Samanta Delgado tomorrow Is there anything else that you would like to discuss? no Questions/Comments/Concerns/Other: none
[2023-09-25 15:35] LABS: Source BLOOD
== END 2023-09-22 13:35 | disposition home or self-care (01) ==
LOC: ER 06:59 → MS 07:32
PROVIDERS: Admitting Provider Family Medicine; Emergency Provider Emergency Medicine; Visit Provider Family Medicine
DX: B34.9 Viral infection, unspecified (principal); R51.9 Headache, unspecified; R29.1 Meningismus; R16.1 Splenomegaly, not elsewhere classified; R50.9 Fever, unspecified; D70.9 Neutropenia, unspecified; F84.0 Autistic disorder; Z20.822 Contact with and (suspected) exposure to COVID-19
CPT/HCPCS: 0202U; 36415; 62270; 70450; 71046; 74177; 80053; 81001; 82945; 83605; 84157; 85007; 85025; 85027; 86308; 86664; 86665; 87040; 87070; 87150; 87205; 87635; 87804; 87880; 89050; 96365; 96366; 96367; 96375; 96376; 99285; G0378; J0696; J2270; J2405; J3370; Q9967

== ENCOUNTER 2023-09-23 20:40 | Emergency (ER) | payer OTHER, SELFPAY ==
[2023-09-23] VITALS (10 sets, daily range): BP systolic 90–133; BP diastolic 37–64; PULSE 65; TEMP 37.1; O2SAT 95–99; BMI 24.0
--- NOTE | 2023-09-23 21:23 | ED.GENADUL1 ---
HPI HPI - General Adult General Chief complaint: Headache Stated complaint: Head, Neck Pain Time Seen by Provider: 09/23/23 21:05 Source: patient and family Mode of arrival: Wheelchair Limitations: no limitations History of Present Illness HPI narrative: patient was admitted here a couple of days ago for fever, headache. Found to have a UTI. headache felt to be viral. Patient now returns because of continued headache. Starts at base of his neck and into his head. Neck is sore but not stiff. No vomiting but can become nauseated. Not nauseated at this time. No extremity numbness or weakness. Mother states fever at home but arrives afebrile here. LP results with gm stain without any bacteria seen. Culture still pending . states headache is 8/10. Does increase when he is upright Related Data Previous Rx's ?Medication ?Instructions ?Recorded cefdinir 300 mg capsule 300 mg PO BID 10 days #20 caps 09/22/23 Allergies Allergy/AdvReac Type Severity Reaction Status Date / Time No Known Drug Allergies Allergy Verified 09/23/23 20:52 Opioid HPI Opioid Management Most Recent Opioid Data: Last Pain Scale 2 09/22/23 08:15 Last Pain Assessment 09/22/23 13:10 Last ORT Total Score 1 09/21/23 08:10 Last ORT Risk Category Low Risk 09/21/23 08:10 Review of Systems ROS Status of ROS 10 or more systems reviewed and unremarkable except as noted in history and below [facility] Medical History (Updated 09/23/23 @ 23:44 by Elmer Richards MD) Headache ?R51.9 - Headache, unspecified (ICD-10) Surgical History (Updated 09/21/23 @ 08:38 by Fely Estrada) Hx of tonsillectomy ?Z90.89 - Acquired absence of other organs (ICD-10) Family History (Updated 09/21/23 @ 08:38 by Fely Estrada) Father Family history of COPD (chronic obstructive pulmonary disease) Social History (Updated 09/21/23 @ 08:39 by Fely Estrada) Within the past year, how often did you have a drink containing alcohol: never Within the past year, how often did you have six or more drinks on one occasion: never Score interpretation: A score less than 4 is consistent with normal alcohol consumption. Smoking status: Never smoker Non-prescribed substance use: denies use Previous occupational history: [employer] Highest level of school completed/degree received: some college, no degree Are you now , , , , never or living with a partner: never In a typical week, how many times do you talk on the telephone with family, friends, or neighbors: 3 or more times per week How often do you get together with friends or relatives: 3 or more times per week How often do you attend pentecostalism or confucianist services: 4 or more times per year Do you belong to any clubs or organizations such as pentecostalism groups unions, [place] or athletic groups, or school groups: no Total score: 2 Score interpretation: A score of greater than or equal to 2 indicates the lowest level of social isolation. Little interest or pleasure in doing things: not at all Feeling down, depressed, or hopeless: not at all Feel stressed/tense/nervous/anxious/difficulty sleeping: not at all Due to disability, difficulty making decisions: No Do you think of yourself as: straight/heterosexual Gender Identity: male Exam Constitutional Vital Signs, click to edit/add: Last Vital Signs Temp 98.7 F 09/23/23 20:48 Pulse 65 09/23/23 20:48 Resp 16 09/23/23 20:48 BP 107/61 09/23/23 22:40 Pulse Ox 98 09/23/23 22:40 O2 Del Method Room Air 09/23/23 20:48 Common normals: average body habitus, oriented x3, no limitations, healthy appearing, alert and well nourished [facility] Common normals: normocephalic and head/scalp atraumatic Eye Common normals: PERRL and EOMs intact bilaterally Neck & C-Spine Other: neck is supple. No Brudzinski sign Respiratory Common normals: normal respiratory effort, no retractions, no use of accessory muscles and clear to auscultation bilaterally Cardio Common normals: regular rate, regular rhythm, S1 normal heart sound and S2 normal heart sound Extremity Common normals: normal to inspection and full ROM Neuro Common normals: oriented x3, CN's II-XII intact bilaterally, moves all extremities and no focal motor deficits Psych Appearance: grossly normal Course Vital Signs Vital signs: Vital Signs Temperature 98.7 F 09/23/23 20:48 Pulse Rate 65 09/23/23 20:48 Respiratory Rate 16 09/23/23 20:48 Blood Pressure 115/57 09/23/23 20:48 Pulse Oximetry 98 09/23/23 20:48 Oxygen Delivery Method Room Air 09/23/23 20:48 Temperature 98.7 F 09/23/23 20:48 Pulse Rate 65 09/23/23 20:48 Respiratory Rate 16 09/23/23 20:48 Blood Pressure 107/61 09/23/23 22:40 Pulse Oximetry 98 09/23/23 22:40 Oxygen Delivery Method Room Air 09/23/23 20:48 Medical Decision Making MDM Narrative Medical decision making narrative: patient recent hospitalization for headache. Workup results in diagnosis of viral headache and UTI. Retuned tonight because of the headache. Neg neuro deficits. Treated in the department and his headache is better and he is requesting discharge. his mother is at the bed side and admits he is feeling better also. Discharged home in improved condition Lab Data Labs: Lab Results 09/23/23 Range/Units 21:41 WBC 4.2 (4.0-11.0) 10^3/uL RBC 5.08 (4.70-6.10) 10^6/uL Hgb 16.6 (14.0-18.0) g/dL Hct 47.1 (42.0-54.0) % MCV 92.7 (80.0-94.0) fL MCH 32.7 (25.9-34.0) pg MCHC 35.2 (29.9-35.2) g/dL RDW 11.9 (11.0-15.0) % Plt Count 85 L (150-450) 10^3/uL MPV 9.2 L (9.5-13.5) fL Seg Neuts % (Manual) 49.0 Band Neutrophils % 2.0 (0-5) % Lymphocytes % (Manual) 16.0 L (20.5-60.0) % Atypical Lymphs % (Man) 16.0 % Monocytes % (Manual) 16.0 H (1.7-12.0) % Eosinophils % (Manual) 0.0 L (0.9-7.0) % Basophils % (Manual) 1.0 (0.2-2.0) % Neutrophils # (Manual) 2.05 (1.4-6.5) 10^3/uL Band Neutrophils # 0.1 (0.0-0.3) 10^3/uL Lymphocytes # (Manual) 0.67 L (1.20-3.80) 10^3/uL Abs Atypical Lymphs Man 0.67 Monocytes # (Manual) 0.67 (0.30-0.80) 10^3/uL Eosinophils # (Manual) 0.00 (0.00-0.70) 10^3/uL Basophils # (Manual) 0.04 (0.00-0.10) 10^3/uL Sodium 142 (136-145) mmol/L Potassium 3.9 (3.5-5.1) mmol/L Chloride 106 (98-107) mmol/L Carbon Dioxide 30.4 (21.0-32.0) mmol/L Anion Gap 9.5 BUN 14.0 (7.0-18.0) mg/dL Creatinine 1.01 (0.70-1.30) mg/dL Est GFR ( Amer) >60 (>=60) Est GFR (Non-Af Amer) >60 (>=60) BUN/Creatinine Ratio 13.9 Glucose 112 H (74-106) mg/dL Calcium 8.9 (8.5-10.1) mg/dL C-Reactive Protein 1.91 H (<=0.50) mg/dL Discharge Plan Discharge Stand Alone Forms: Portal Instructions Chief Complaint: Headache Clinical Impression: Viral illness, Headache Patient Disposition: Home, Self-Care Prescriptions / Home Meds: No Action cefdinir 300 mg capsule 300 mg PO BID 10 Days Qty: 20 0RF Print Language: Swedish Instructions: Acute Headache (ED), Viral Syndrome (ED) Referrals: Physician,Non-Staff, MD [Primary Care Provider] - 1 week
[2023-09-23 21:55] LABS: Hematocrit 47.1 % (42.0-54.0); Hemoglobin 16.6 g/dL (14.0-18.0); Mean Corpuscular HGB Conc 35.2 g/dL (29.9-35.2); Mean Corpuscular Hemoglobin 32.7 pg (25.9-34.0); Mean Corpuscular Volume 92.7 fL (80.0-94.0); Mean Platelet Volume 9.2 fL (9.5-13.5); Platelet Count 85 10^3/uL (150-450); Red Blood Count 5.08 10^6/uL (4.70-6.10); Red Cell Distribution Width 11.9 % (11.0-15.0); White Blood Count 4.2 10^3/uL (4.0-11.0)
[2023-09-23] MEDS: METHYLPREDNISOLONE SOD SUCC PF 125 MG/2 ML VIAL IVP (21:59)
[2023-09-23] MEDS: 0.9 % SODIUM CHLORIDE 1,000 ML 999 ML IV (21:59)
[2023-09-23] MEDS: METOCLOPRAMIDE HCL 10 MG/2 ML VIAL IVP (21:59)
[2023-09-23] MEDS: DIPHENHYDRAMINE HCL 50 MG/ML VIAL IV (21:59)
[2023-09-23 22:03] LABS: Anion Gap 9.5; BUN Creatinine Ratio 13.9; C Reactive Protein 1.91 mg/dL (<=0.50); Calcium 8.9 mg/dL (8.5-10.1); Carbon Dioxide 30.4 mmol/L (21.0-32.0); Chloride 106 mmol/L (98-107); Estimated GFR (African America >60 (>=60); Estimated GFR (Non-African Ame >60 (>=60); Glucose 112 mg/dL (74-106); Potassium 3.9 mmol/L (3.5-5.1); Sodium 142 mmol/L (136-145)
[2023-09-23 22:14] LABS: Atypical Lymphocytes Abs Man 0.67; Band Neutrophils Absolute 0.1 10^3/uL (0.0-0.3); Basophils Abs Manual 0.04 10^3/uL (0.00-0.10); Lymphocytes Absolute Manual 0.67 10^3/uL (1.20-3.80); Monocytes Absolute Manual 0.67 10^3/uL (0.30-0.80); Segmented Neut Absolute Manual 2.05 10^3/uL (1.4-6.5)
== END 2023-09-24 00:01 | disposition home or self-care (01) ==
PROVIDERS: Emergency Provider Internal Medicine
DX: B34.9 Viral infection, unspecified (principal); R51.9 Headache, unspecified
CPT/HCPCS: 36415; 80048; 85007; 85027; 86140; 96374; 96375; 99284; J1200; J2765; J2919

== ENCOUNTER 2023-10-03 12:57 | Outpatient (RCR) | payer OTHER, SELFPAY ==
--- NOTE | 2023-10-12 09:36 | PC.NURSE ---
Spoke with patients mother, notified a prescription called into [facility] pharmacy and patient referred to Dr. Santacruz's office for follow up. Patients mother states understanding.
== END 2023-10-25 15:32 | disposition home or self-care (01) ==
LOC: PT 12:57
PROVIDERS: PCP Family Medicine; Visit Provider Family Medicine
DX: R51.9 Headache, unspecified (principal); F84.0 Autistic disorder; R42 Dizziness and giddiness; M54.2 Cervicalgia
CPT/HCPCS: 97110; 97140; 97161

== ENCOUNTER 2024-01-30 09:58 | Emergency (ER) | payer OTHER, SELFPAY ==
[2024-01-30 10:02] VITALS: BP 104/52; PULSE 50; TEMP 36.4; O2SAT 100; BMI 27.1
--- NOTE | 2024-01-30 10:06 | ECG_ITS ---
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
--- NOTE | 2024-01-30 10:06 | ED.SYNCOPE1 ---
HPI - Syncope General Chief Complaint: Syncope Stated Complaint: GENERAL WEAKNESS/SYNCOPE Time Seen by Provider: 01/30/24 10:02 History of Present Illness HPI narrative: 23-year-old male presents because he passed out. He was getting his blood drawn when this happened. He does not remember much but he did pass out completely but there was no injury such as from a fall. This was being accomplished at an outpatient setting and he was getting his blood drawn for a routine physical. Related Data Home Medications ?Medication ?Instructions ?Recorded ?Confirmed No Known Home Medications 01/30/24 01/30/24 Allergies Allergy/AdvReac Type Severity Reaction Status Date / Time No Known Drug Allergies Allergy Verified 01/30/24 10:01 [facility] Medical History (Updated 01/30/24 @ 12:31 by Asif Bhandari MD) Autism spectrum disorder ?F84.0 - Autistic disorder (ICD-10) Headache ?R51.9 - Headache, unspecified (ICD-10) Surgical History (Updated 09/21/23 @ 08:38 by Fely Estrada) Hx of tonsillectomy ?Z90.89 - Acquired absence of other organs (ICD-10) Family History (Updated 09/21/23 @ 08:38 by Fley Estrada) Father Family history of COPD (chronic obstructive pulmonary disease) Social History (Updated 09/21/23 @ 08:39 by Fely Estrada) Within the past year, how often did you have a drink containing alcohol: never Within the past year, how often did you have six or more drinks on one occasion: never Score interpretation: A score less than 4 is consistent with normal alcohol consumption. Smoking status: Never smoker Non-prescribed substance use: denies use Previous occupational history: [employer] Highest level of school completed/degree received: some college, no degree Are you now , , , , never or living with a partner: never In a typical week, how many times do you talk on the telephone with family, friends, or neighbors: 3 or more times per week How often do you get together with friends or relatives: 3 or more times per week How often do you attend methodist or moravian services: 4 or more times per year Do you belong to any clubs or organizations such as methodist groups unions, fraternal or athletic groups, or school groups: no Total score: 2 Score interpretation: A score of greater than or equal to 2 indicates the lowest level of social isolation. Little interest or pleasure in doing things: not at all Feeling down, depressed, or hopeless: not at all Feel stressed/tense/nervous/anxious/difficulty sleeping: not at all Due to disability, difficulty making decisions: No Do you think of yourself as: straight/heterosexual Gender Identity: male Exam Constitutional Vital Signs, click to edit/add: Last Vital Signs Temp 97.6 F 01/30/24 10:02 Pulse 50 L 01/30/24 10:02 Resp 14 01/30/24 10:02 BP 104/52 01/30/24 10:02 Pulse Ox 100 01/30/24 10:02 O2 Del Method Room Air 01/30/24 10:02 Course Vital Signs Vital signs: Vital Signs Temperature 97.6 F 01/30/24 10:02 Pulse Rate 50 L 01/30/24 10:02 Respiratory Rate 14 01/30/24 10:02 Blood Pressure 104/52 01/30/24 10:02 Pulse Oximetry 100 01/30/24 10:02 Oxygen Delivery Method Room Air 01/30/24 10:02 Temperature 97.6 F 01/30/24 10:02 Pulse Rate 50 L 01/30/24 10:02 Respiratory Rate 14 01/30/24 10:02 Blood Pressure 104/52 01/30/24 10:02 Pulse Oximetry 100 01/30/24 10:02 Oxygen Delivery Method Room Air 01/30/24 10:02 MDM - Syncope MDM Narrative Medical decision making narrative: His workup here is negative and he is discharged home. My clinical impression is that he had a vasovagal syncope and is now asymptomatic. I do not clinically suspect a seizure. Differential Diagnosis Differential diagnosis: Likely syncope due to orthostatic hypotension and vasovagal syncope Lab Data Attestation: I reviewed the patient's lab results. Labs: Lab Results 01/30/24 Range/Units 11:05 WBC 5.4 (4.0-11.0) 10^3/uL RBC 4.66 L (4.70-6.10) 10^6/uL Hgb 15.3 (14.0-18.0) g/dL Hct 42.6 (42.0-54.0) % MCV 91.4 (80.0-94.0) fL MCH 32.8 (25.9-34.0) pg MCHC 35.9 H (29.9-35.2) g/dL RDW 12.0 (11.0-15.0) % Plt Count 127 L (150-450) 10^3/uL MPV 8.6 L (9.5-13.5) fL Neut % (Auto) 52.7 (43.0-75.0) % Lymph % (Auto) 35.3 (20.5-60.0) % [place] % (Auto) 9.2 (1.7-12.0) % Eos % (Auto) 2.0 (0.9-7.0) % Baso % (Auto) 0.6 (0.2-2.0) % Neut # (Auto) 2.9 (1.4-6.5) 10^3/uL Lymph # (Auto) 1.9 (1.2-3.8) 10^3/uL [place] # (Auto) 0.5 (0.3-0.8) 10^3/uL Eos # (Auto) 0.1 (0.0-0.7) 10^3/uL Baso # (Auto) 0.0 (0.0-0.1) 10^3/uL Abs Immat Gran (auto) 0.01 (0.00-0.03) 10^3/uL Imm/Tot Granulo (auto) 0.2 (0.0-0.5) % Sodium 141 (136-145) mmol/L Potassium 3.9 (3.5-5.1) mmol/L Chloride 105 (98-107) mmol/L Carbon Dioxide 26.1 (21.0-32.0) mmol/L Anion Gap 13.8 BUN 23.0 H (7.0-18.0) mg/dL Creatinine 0.94 (0.70-1.30) mg/dL Est GFR ( Amer) >60 (>=60 mL/min/1.73m^2) Est GFR (Non-Af Amer) >60 (>=60 mL/min/1.73m^2) BUN/Creatinine Ratio 24.5 Glucose 101 (74-106) mg/dL Calcium 9.0 (8.5-10.1) mg/dL Imaging Data CT scan - head: Radiologist's impression: ITS Impressions Head CT 01/30/24 10:54 IMPRESSION: No acute intracranial process. Electronically authenticated by: ARNULFO REES Date: 01/30/2024 12:10 ECG Data Attestation: I personally reviewed and interpreted this ECG as follows: (EKG on my interpretation shows sinus rhythm with a rate of 53 and early repolarization) Discharge Plan Discharge Chief Complaint: Syncope Clinical Impression: Vasovagal syncope Patient Disposition: Home, Self-Care Time of Disposition Decision: 12:31 Condition: Good Mode of Transportation: Private Vehicle Prescriptions / Home Meds: No Action No Known Home Medications Print Language: Czech Instructions: Syncope (ED) Referrals: CORRINA NAIR [Primary Care Provider] - 1 week
[2024-01-30 10:14] VITALS: PULSE 49
--- NOTE | 2024-01-30 10:54 | CT_ITS ---
The [address] [address] Patient Name: SHAINA CAMPA MRN: [id number] date: 2000 Sex: M Assigned Patient Location: ER Current Patient Location: ER Accession/Order Number: [id number] Exam Date: 01/30/2024 11:13 Report Date: 01/30/2024 12:10 At the request of: RAZ MIRZA Procedure: CT head/brain wo con EXAM: CT head/brain wo con HISTORY: Syncope, headaches COMPARISON: CT head 09/21/2023. TECHNIQUE: Axial noncontrast CT imaging of the head was performed with coronal and sagittal reformats. This CT exam was performed using one or more of the following dose reduction techniques: Automated exposure control, adjustment of the MA and/or kV according to patient size, or use of iterative reconstruction technique. FINDINGS: Calvarium/skull base: No evidence of acute fracture or destructive lesion. Paranasal sinuses: No air fluid levels. Brain: No acute intracranial hemorrhage. No acute large vascular territory infarct. Prominent perivascular spaces involving the inferior lentiform nuclei, stable from prior. No mass lesion or mass effect. No hydrocephalus. CT/CT head/brain wo con IMPRESSION: No acute intracranial process. Electronically authenticated by: ARNULFO REES Date: 01/30/2024 12:10
--- NOTE | 2024-01-30 11:00 | PC.NURSE ---
nursing report given to Carolyn WHEELER, all questions answered. mother now at bedside and Dr. Bhandari made aware. 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
[2024-01-30 11:20] LABS: Basophils Percent Auto 0.6 % (0.2-2.0); Eosinophils Absolute Auto 0.1 10^3/uL (0.0-0.7); Hematocrit 42.6 % (42.0-54.0); Hemoglobin 15.3 g/dL (14.0-18.0); Immature Granulocytes Abs Auto 0.01 10^3/uL (0.00-0.03); Immature Granulocytes Pct Auto 0.2 % (0.0-0.5); Lymphocytes Absolute Auto 1.9 10^3/uL (1.2-3.8); Lymphocytes Percent Auto 35.3 % (20.5-60.0); Mean Corpuscular HGB Conc 35.9 g/dL (29.9-35.2); Mean Corpuscular Hemoglobin 32.8 pg (25.9-34.0); Mean Corpuscular Volume 91.4 fL (80.0-94.0); Mean Platelet Volume 8.6 fL (9.5-13.5); Monocytes Absolute Auto 0.5 10^3/uL (0.3-0.8); Monocytes Percent Auto 9.2 % (1.7-12.0); Neutrophils Absolute Auto 2.9 10^3/uL (1.4-6.5); Neutrophils Percent Auto 52.7 % (43.0-75.0); Platelet Count 127 10^3/uL (150-450); Red Blood Count 4.66 10^6/uL (4.70-6.10); White Blood Count 5.4 10^3/uL (4.0-11.0)
[2024-01-30 11:25] LABS: Anion Gap 13.8; BUN Creatinine Ratio 24.5; Carbon Dioxide 26.1 mmol/L (21.0-32.0); Chloride 105 mmol/L (98-107); Estimated GFR (African America >60 (>=60 mL/min/1.73m^2); Estimated GFR (Non-African Ame >60 (>=60 mL/min/1.73m^2); Glucose 101 mg/dL (74-106); Potassium 3.9 mmol/L (3.5-5.1); Sodium 141 mmol/L (136-145)
[2024-01-30 12:35] VITALS: BP 126/88; PULSE 86; O2SAT 98
== END 2024-01-30 12:36 | disposition home or self-care (01) ==
PROVIDERS: Emergency Provider Emergency Medicine; PCP Family Medicine
DX: R55 Syncope and collapse (principal)
CPT/HCPCS: 36415; 70450; 80048; 85025; 93005; 99285